=== PATIENT | female | born 1975 | race Caucasian/White ===

== ENCOUNTER 2016-08-26 09:54 | Emergency (ER) ==
[2016-08-26 10:21] VITALS: BP 147/88; TEMP 98.5; BMI 17.6
[2016-08-26 10:44] LABS: URINE PREGNANCY INTERNAL QC INTERNAL QC VALID
--- NOTE | 2016-08-26 11:32 | CT ---
EXAM: CT soft tissue neck without contrast. HISTORY: Initial presentation for choking injury. COMPARISON: None available. TECHNIQUE: Multiple axial images of the neck were obtained without contrast. Images were reformatt ed in the sagittal and coronal plane. FINDINGS: Note that evaluation of the soft tissues of the neck is limited by lack of intravenous co ntrast. The parotid and submandibular glands are unremarkable. Pharyngeal soft tissues, the epiglottis and laryngeal structures are unremarkable. Airway is normal in caliber. Thyroid gland is normal in siz e. No subcutaneous edema or fluid collections noted. No intracranial or intraorbital abnormality identified. The paranasal sinuses and mastoid air cells are clear. Probable cerumen in the external auditory canals. Degenerative changes present in the spine, greatest at C5-6 where there is disc osteophyte formation and uncovertebral hypertrophy causing mild central canal stenosis and moderate left neural foramina l narrowing. No acute abnormalities seen in the lung apices. Mild emphysematous changes are present along with r ight apical scarring. IMPRESSION: No acute abnormality of the neck.
--- NOTE | 2016-08-26 12:00 | ED.PDOC ---
General ED Provider: Dr. LIZBET MORIN Chief Complaint: Neck Pain Non-Injury Stated Complaint: neck pain Time Seen by Physician: 10:00 (seen with staff was choked ) Mode of Arrival: Walk-In Information Source: Patient Exam Limitations: No limitations Nursing and Triage Documentation Reviewed and Agree: Yes Musculoskeletal Complaint Exam - Neck Pain Complaint/Exam Mechanism of Injury: Reports: Trauma Onset/Duration: 1 day Symptoms Are: Still present Timing: Constant Episodes Lasting: Hours Initial Severity: Mild Location: Reports: Discrete Character: Reports: Aching Aggravating: Reports: None Alleviating: Reports: None Associated Signs and Symptoms: Denies: Swelling, Redness, Bruising, Fever, Nuchal rigidity, Weakness, Headache, Paresthesia Meningitis Risk Factors: Reports: None Cervical Spine Injury Risk Factors: Reports: Post-Midline CS tender. Denies: Evidence of intoxication, Altered LOC, Focal neuro deficit, Distracting injuries Related Surgical History: Reports: None Carotid Bruit Present: No Pain on Passive Flexion: No Positive Kernig's Sign: No Focal Weakness: Present: None Focal Sensory Loss: Reports: None Nexus Low Risk Criteria: No evidence of intoxicat., No Altered LOC, No focal neuro deficit, No distracting injuries Differential Diagnoses: Cervical Fracture, Sprain, Strain Review of Systems - Review Of Systems Constitutional: Reports: No symptoms Eyes: Reports: No symptoms Ears, Nose, Mouth, Throat: Reports: No symptoms Respiratory: Reports: No symptoms Cardiac: Reports: No symptoms GI: Reports: No symptoms : Reports: No symptoms Musculoskeletal: Reports: Neck pain Skin: Reports: No symptoms Neurological: Reports: No symptoms Endocrine: Reports: No symptoms Hematologic/Lymphatic: Reports: No symptoms All Other Systems: Reviewed and Negative Past Medical History - Past Medical History Previously Healthy: Yes Endocrine: Reports: None Cardiovascular: Reports: None Respiratory: Reports: None Hematological: Reports: None Gastrointestinal: Reports: None Genitourinary: Reports: None Neuro/Psych: Reports: None Musculoskeletal: Reports: None Cancer: Reports: None Last Menstrual Period: 2013 - Surgical History General Surgical History: Reports: None - Family History Family History: Reports: None - Social History Smoking Status: Current every day smoker Hx Substance Use: No Alcohol Screening: Heavy - Immunizations Tetanus Shot up to Date: No Physical Exam - Physical Exam Appearance: Well-appearing, No pain distress, Well-nourished Eyes: LISSETH, EOMI, Conjunctiva clear ENT: Ears normal, Nose normal, Oropharynx normal Respiratory: Airway patent, Breath sounds clear, Breath sounds equal, Respirations nonlabored Cardiovascular: RRR, Pulses normal, No rub, No murmur GI/: Soft, Nontender, No masses, Bowel sounds normal, No Organomegaly Musculoskeletal: Normal strength, ROM intact, No edema, No calf tenderness Skin: Warm, Dry, Normal color Neurological: Sensation intact, Motor intact, Reflexes intact, Cranial nerves intact, Alert, Oriented Psychiatric: Affect appropriate, Mood appropriate Interpretation - Radiology Interpretation Radiology Interpretation By: Radiologist Radiology Results: No acute changes Critical Care Note - Critical Care Note Total Time (mins): 0 Course - Course Orders, Labs, Meds: Lab Review 08/26/16 10:23 Urine Test Negative Orders Category Date Time Status URINE Stat LAB 08/26/16 10:[address] SOFT TISSUE NECK W/O CONTR Stat RADS 08/26/16 10:31 Completed Vital Signs: Temp Pulse Resp BP Pulse Ox 08/26/16 09:56 98.5 F 81 20 147/88 H 98 Departure - Departure Time of Disposition: 11:59 Disposition: HOME SELF-CARE Discharge Problem: Neck pain Instructions: Neck Pain (ED) Condition: Good Pt referred to PMD for follow-up: No Additional Instructions: Please call your Family Physician as soon as possible to schedule a follow-up appointment. Allergies/Adverse Reactions: Allergies paroxetine [From Paxil] Adverse Reaction (Verified 08/26/16 10:09) IVORY SOAP Adverse Reaction (Uncoded 08/26/16 10:09) Home Medications: Ambulatory Orders Aripiprazole [Abilify] 20 mg PO DAILY 08/26/16 Benztropine Mesylate [Cogentin] 1 mg PO BID 08/26/16 Quetiapine Fumarate [Seroquel] 150 mg PO DAILY 08/26/16 Venlafaxine HCl [Effexor] 75 mg PO DAILY 08/26/16
== END 2016-08-26 12:07 | disposition home or self-care (01) ==
LOC: ED 09:54
DX: M54.2 Cervicalgia (principal); F17.210 Nicotine dependence, cigarettes, uncomplicated
CPT/HCPCS: 81025; 99282